=== PATIENT | female | born 1975 | race Caucasian/White ===

== ENCOUNTER 2020-04-23 07:30 | Inpatient (IN) | payer MEDICAID ==
[2020-04-17 11:49] LABS: HEMATOCRIT 36.8 % (36.0-47.0); MEAN CORPUSCULAR HEMOGLOBIN 30.7 pg (27.0-33.4); MEAN CORPUSCULAR HGB CONC 35.2 g/dL (32.0-36.0); MEAN CORPUSCULAR VOLUME 87 fl (80-97); PLATELET COUNT 196 10^3/uL (150-450); RED BLOOD COUNT 4.22 10^6/uL (3.72-5.28); RED CELL DISTRIBUTION WIDTH 14.4 % (11.5-14.0); WHITE BLOOD COUNT 7.1 10^3/uL (4.0-10.5)
[2020-04-17 12:14] LABS: APPEARANCE,URINE CLEAR; BILIRUBIN,URINE NEGATIVE (NEGATIVE); COLOR,URINE YELLOW; GLUCOSE, URINE NEGATIVE (NEGATIVE); KETONES,URINE NEGATIVE (NEGATIVE); LEUKOCYTE ESTERASE,URINE NEGATIVE (NEGATIVE); NITRITE,URINE NEGATIVE (NEGATIVE); PROTEIN,URINE NEGATIVE (NEGATIVE); URINE SPECIFIC GRAVITY 1.026; UROBILINOGEN,URINE NEGATIVE mg/dL (<2.0)
[2020-04-17 12:17] LABS: ALBUMIN 4.2 g/dL (3.5-5.0); ALKALINE PHOSPHATASE 83 U/L (38-126); ANION GAP 11 (5-19); ASPARTATE AMINO TRANSFERASE 22 U/L (14-36); BILIRUBIN,DIRECT 0.2 mg/dL (0.0-0.4); BILIRUBIN,TOTAL 0.5 mg/dL (0.2-1.3); BLOOD UREA NITROGEN 13 mg/dL (7-20); CALCIUM 9.1 mg/dL (8.4-10.2); CARBON DIOXIDE 20 mmol/L (22-30); CHLORIDE 104 mmol/L (98-107); GLUCOSE 90 mg/dL (75-110); POTASSIUM 4.2 mmol/L (3.6-5.0); TOTAL PROTEIN 7.3 g/dL (6.3-8.2)
[~2020-04-23 07:30] MED LIST: CEFAZOLIN 2 GM/D5W RTU 2 GM/50 ML RTUPB IV PRN; DEXAMETHASONE SOD PHOSPHATE INJ 4 MG/1 ML VIAL ONE; FENTANYL CITRATE INJ/PF 250 MCG/5 ML AMPULE ONE; HYDROMORPHONE HCL INJ/PF 2 MG/ML AMPULE ONE; KETOROLAC TROMETHAMINE 60 MG/2 ML SDV ONE; LACTATED RINGERS 1000 ML IV PRN; LIDOCAINE 0.5% INJ-PF (5 MG/ML) 50 ML SDV SUBCUT PRN; MIDAZOLAM 2 MG/2 ML INJ ONE; ONDANSETRON HCL INJ/PF 4 MG/2 ML SDV ONE; PROPOFOL INJ 200 MG/20 ML VIAL IV ONE; SUGAMMADEX SODIUM 200 MG/2 ML SDV IV ONE
[2020-04-23] MEDS ORDERED: HYDROMORPHONE HCL INJ/PF 2 MG/ML AMPULE ONE (10:03)
[2020-04-23] MEDS ORDERED: FENTANYL CITRATE INJ/PF 100 MCG/2 ML AMPUL ONE ×2 (10:04→12:30)
[2020-04-23] MEDS ORDERED: SUGAMMADEX SODIUM 200 MG/2 ML SDV IV ONE (10:04)
[2020-04-23] MEDS ORDERED: MIDAZOLAM 2 MG/2 ML INJ ONE (10:04)
[2020-04-23] MEDS ORDERED: EPHEDRINE SULFATE INJ 50 MG/1 ML AMPULE ONE (10:04)
[2020-04-23] MEDS ORDERED: PROPOFOL INJ 200 MG/20 ML VIAL IV ONE (10:04)
[2020-04-23] MEDS ORDERED: CEFAZOLIN 2 GM/D5W RTU 2 GM/50 ML RTUPB IV ONE (10:23)
[2020-04-23] MEDS ORDERED: MORPHINE SULFATE 10 MG/ML INJ IV PRN (11:09)
[2020-04-23] MEDS ORDERED: FENTANYL CITRATE INJ/PF 100 MCG/2 ML AMPUL IV PRN ×2 (11:09)
[2020-04-23] MEDS ORDERED: OXYCODONE-ACETAMINOPHEN 5-325 MG TABLET PO PRN ×3 (11:09→12:16)
[2020-04-23] MEDS ORDERED: PROMETHAZINE HCL INJ 25 MG/1 ML VIAL IV PRN ×3 (11:09→12:16)
[2020-04-23] MEDS ORDERED: MEPERIDINE HCL/PF INJ 25 MG/1 ML DISP.SYRIN IV PRN (11:09)
[2020-04-23] MEDS ORDERED: DIPHENHYDRAMINE HCL 50 MG/ML VIAL IV PRN (11:09)
[2020-04-23] MEDS ORDERED: HYDROMORPHONE HCL INJ/PF 2 MG/ML AMPULE IV PRN (12:16)
[2020-04-23] MEDS ORDERED: ACETAMINOPHEN 325 MG TABLET PO PRN (12:16)
[2020-04-23] MEDS ORDERED: SIMETHICONE 80 MG TAB.CHEW PO PRN (12:16)
[2020-04-23] MEDS ORDERED: RINGERS SOLUTION,LACTATED 1,000 ML IV PRN (12:16)
--- NOTE | 2020-04-23 12:27 | Operative Report ---
Operative Report DATE OF SURGERY: 04/23/20 PREOPERATIVE DIAGNOSIS: Heavy menstrual bleeding dysmenorrhea and fibroids POSTOPERATIVE DIAGNOSIS: Same OPERATION: Supracervical hysterectomy and bilateral salpingectomy SURGEON: TAPAN RODARTE ANESTHESIA: GA TISSUE REMOVED OR ALTERED: Uterus and fallopian tubes COMPLICATIONS: None ESTIMATED BLOOD LOSS: 125 cc INTRAOPERATIVE FINDINGS: Normal-appearing ovaries PROCEDURE: Patient presents with heavy menstrual bleeding dysmenorrhea fibroids. She req uests hysterectomy. We had initially to scheduled a laparoscopic hysterectomy with the intent to remove the uterus through the vagina however she requests a supracervical hysterectomy and asked that we go through her incision. She would like the ovaries left if normal. Patient was taken the OR and placed in supine position. General anesthesia was induced. She was placed in dorsolithotomy position using Reese stirrups. Her perineum vagina and abdomen were prepared and draped in a sterile fashion. A catheter was placed for drainage of the bladder. A low transverse incision was made along her old scar and carried down to level of the fascia. The fascia was incised with curved Gomez scissors. The fascia was off the rectus muscles using sharp and blunt dissection. The rectus muscles were in the midline peritoneum was entered without incident. An Alejandro retractor was placed and the bowel contents were packed back with 3 moist lap sponges. The uterus was grasped with a Keith thyroid clamp and elevated out of the pelvis. Using the LigaSure device the round ligaments bilaterally were clamped cauterized and cut. The anterior leaf of the broad ligament was incised creating a bladder flap. The posterior leaf of the broad ligament was incised isolating the utero-ovarian pedicles. The ovaries were normal and were left in place. The utero-ovarian pedicles were clamped cauterized and cut with the LigaSure device. The fallopian tubes also were removed bilaterally by cauterizing the mesosalpinx with the LigaSure device and and cutting the tubes free. These were passed off the field for specimen. Next staying directly next to the uterus the broad ligament was clamped cauterized and cut with the LigaSure device bilaterally. The uterine arteries were skeletonized and these were also clamped cauterized and cut with the LigaSure device bilaterally. During this time the bladder was taken off the anterior aspect the cervix using sharp and blunt dissection. The cardinal ligaments were then clamped with a straight Ajay clamp, cut and then ligated with 0 Vicryl suture bilaterally. The cervix was then cut with curved Gomez scissors. The uterus and upper cervix were passed off the field. The internal cervical canal was cauterized with the Bovie unit to ablate any remaining cervical endometrium. The cervix was then closed with interrupted sutures of 0 Vicryl. The pelvis was irrigated and suctioned free of fluid the surgical pedicles were inspected and found to be hemostatic. The 3 moist lap sponges were then removed from the pelvis and the bowel was allowed to settle to its natural configuration. The Alejandro retractor was removed. The anterior abdominal wall peritoneum was then closed with a 2-0 chromic stitch. The subfascial tissues were inspected for bleeding and the fascia was closed with a running 0 Vicryl in 2 segments. The wound was irrigated. David's layer was closed with a 2-0 plain gut stitch and skin closed with a running subcuticular 4-0 undyed Vicryl stitch. The wound was dressed. The patient was extubated in the OR and taken to the recovery room in stable condition.
[2020-04-23] MEDS ORDERED: MORPHINE SULFATE 10 MG/ML INJ ONE (12:30)
[2020-04-23] MEDS: FENTANYL CITRATE INJ/PF 100 MCG/2 ML AMPUL IV PRN ×2 (12:36→12:45)
[2020-04-23] MEDS ORDERED: ROCURONIUM BROMIDE INJ 50 MG/5 ML VIAL IV ONE (13:47)
[2020-04-23] MEDS ORDERED: ONDANSETRON HCL INJ/PF 4 MG/2 ML SDV ONE (13:47)
[2020-04-23] MEDS ORDERED: KETOROLAC TROMETHAMINE 60 MG/2 ML SDV ONE (13:47)
[2020-04-23] MEDS ORDERED: DIPHENHYDRAMINE HCL 50 MG/ML VIAL ONE (13:47)
[2020-04-23] MEDS ORDERED: GLYCOPYRROLATE 1 MG/5 ML VIAL ONE (13:47)
[2020-04-23] MEDS ORDERED: METOCLOPRAMIDE HCL INJ/PF 10 MG/2 ML SDV ONE (13:47)
[2020-04-23] MEDS ORDERED: DEXAMETHASONE SOD PHOSPHATE INJ 4 MG/1 ML VIAL ONE (13:47)
[2020-04-23] MEDS ORDERED: SUCCINYLCHOLINE CHLORIDE INJ 200 MG/10 ML VIAL ONE (13:47)
[2020-04-23] MEDS ORDERED: ALBUTEROL SULFATE HFA (90 MCG/PUFF) 8 GM MDI IH ONE (13:47)
[2020-04-23] MEDS ORDERED: KETOROLAC TROMETHAMINE INJ/PF 30 MG/1 ML SDV IV SCH (14:00)
[2020-04-23 16:42] LABS: HEMATOCRIT 35.4 % (36.0-47.0); HEMOGLOBIN 12.1 g/dL (12.0-15.5); MEAN CORPUSCULAR HEMOGLOBIN 29.8 pg (27.0-33.4); MEAN CORPUSCULAR HGB CONC 34.2 g/dL (32.0-36.0); MEAN CORPUSCULAR VOLUME 87 fl (80-97); RED BLOOD COUNT 4.05 10^6/uL (3.72-5.28); RED CELL DISTRIBUTION WIDTH 14.1 % (11.5-14.0); WHITE BLOOD COUNT 12.8 10^3/uL (4.0-10.5)
[2020-04-23 17:02] LABS: PLATELET COUNT 153 10^3/uL (150-450)
[2020-04-23 17:04] LABS: ABSOLUTE LYMPHOCYTES# (MANUAL) 0.9 10^3/uL (0.5-4.7); ABSOLUTE MONOCYTES # (MANUAL) 0.1 10^3/uL (0.1-1.4); BASOPHILS % (MANUAL) 0 % (0-2); EOSINOPHILS % (MANUAL) 0 % (0-6); LYMPHOCYTES % (MANUAL) 7 % (13-45); MONOCYTES % (MANUAL) 1 % (3-13); SEGMENTED NEUTROPHILS % (MAN) 92 % (42-78); TOTAL CELLS COUNTED 100
[2020-04-23 17:06] LABS: OVALOCYTES SLIGHT
[2020-04-23 17:07] LABS: ANISOCYTOSIS 1+; PLATELET CLUMPS PRESENT; PLATELET COMMENT ADEQUATE
[2020-04-23] MEDS: DOCUSATE SODIUM 100 MG CAPSULE PO SCH (17:57)
[2020-04-23] MEDS: OXYCODONE-ACETAMINOPHEN 5-325 MG TABLET PO PRN (22:25)
[2020-04-24] MEDS: IBUPROFEN 800 MG TABLET PO SCH ×3 (00:21→11:19)
[2020-04-24] MEDS: OXYCODONE-ACETAMINOPHEN 5-325 MG TABLET PO PRN ×3 (03:53→12:28)
[2020-04-24 07:56] LABS: HEMATOCRIT 31.9 % (36.0-47.0); HEMOGLOBIN 11.1 g/dL (12.0-15.5); MEAN CORPUSCULAR HEMOGLOBIN 30.1 pg (27.0-33.4); MEAN CORPUSCULAR HGB CONC 34.7 g/dL (32.0-36.0); MEAN CORPUSCULAR VOLUME 87 fl (80-97); PLATELET COUNT 174 10^3/uL (150-450); RED BLOOD COUNT 3.69 10^6/uL (3.72-5.28)
--- NOTE | 2020-04-24 09:24 | PDOC DISCHARGE SUMMARY ---
Impression - Admit/DC Date/PCP Admission Date/Primary Care Provider: 04/23/20 08:48 VIVIAN LAGUNAS Discharge Date: 04/24/20 - Discharge Diagnosis (1) Heavy menses Is this a current diagnosis for this admission?: Yes (2) Dysmenorrhea Is this a current diagnosis for this admission?: Yes - Assessment Summary: The pt requests a supracervical hysterectomy for her heavy menses and dysmenorrhea. This was done on the . Please see the operative report. She did well the night of surgery. She continues to do well today and would like to go home today. Precautions have been given. She will followup next week. - Additional Information Resuscitation Status: Full Code Discharge Diet: Regular Discharge Activity: Balance Activity w/Rest, Pelvic Rest, Slowly Increase Activity Referrals: TAPAN RODARTE MD [ACTIVE STAFF] - 05/06/20 11:00 am (CALL THE OFFICE OF ANY QUESTIONS OR CONCERNS.) JULES SESAY PA [Primary Care Provider] - Prescriptions: Oxycodone HCl/Acetaminophen [Percocet 5-325 mg Tablet] 2 tab PO Q6HP PRN #30 tablet PRN Reason: Ibuprofen [Motrin 800 mg Tablet] 800 mg PO Q8H #30 tablet Home Medications: Lisdexamfetamine Dimesylate [Vyvanse] 40 mg PO DAILY 04/17/20 Ibuprofen [Motrin 800 mg Tablet] 800 mg PO Q8H #30 tablet 04/24/20 Oxycodone HCl/Acetaminophen [Percocet 5-325 mg Tablet] 2 tab PO Q6HP PRN #30 tablet 04/24/20 Additional Information: Pelvic rest, no heavy lifting, no driving for two weeks. History of Present Illiness History of Present Illness: INDRA MCKEON is a 44 year old female Physical Exam - Physical Exam Vital Signs: Temp Pulse Resp BP Pulse Ox 98.2 F 62 16 109/67 100 04/24/20 07:10 04/24/20 07:10 04/24/20 07:10 04/24/20 07:10 04/24/20 07:10 Intake & Output 04/23/20 04/24/20 04/25/20 06:59 06:59 06:59 Intake Total 4050 140 Output Total 1950 Balance 2100 140 Weight 106.5 kg Results Laboratory Results: WBC 9.0 10^3/uL (4.0-10.5) 04/24/20 06:19 RBC 3.69 10^6/uL (3.72-5.28) L 04/24/20 06:19 Hgb 11.1 g/dL (12.0-15.5) L 04/24/20 06:19 Hct 31.9 % (36.0-47.0) L 04/24/20 06:19 MCV 87 fl (80-97) 04/24/20 06:19 MCH 30.1 pg (27.0-33.4) 04/24/20 06:19 MCHC 34.7 g/dL (32.0-36.0) 04/24/20 06:19 RDW 14.0 % (11.5-14.0) 04/24/20 06:19 Plt Count 174 10^3/uL (150-450) 04/24/20 06:19 Lymph % (Auto) Not Reportable 04/23/20 16:24 [place] % (Auto) Not Reportable 04/23/20 16:24 Eos % (Auto) Not Reportable 04/23/20 16:24 Baso % (Auto) Not Reportable 04/23/20 16:24 Absolute Neuts (auto) Not Reportable 04/23/20 16:24 Absolute Lymphs (auto) Not Reportable 04/23/20 16:24 Absolute Monos (auto) Not Reportable 04/23/20 16:24 Absolute Eos (auto) Not Reportable 04/23/20 16:24 Absolute Basos (auto) Not Reportable 04/23/20 16:24 Total Counted 100 04/23/20 16:24 Seg Neutrophils % Not Reportable 04/23/20 16:24 Seg Neuts % (Manual) 92 % (42-78) H 04/23/20 16:24 Lymphocytes % (Manual) 7 % (13-45) L 04/23/20 16:24 Monocytes % (Manual) 1 % (3-13) L 04/23/20 16:24 Eosinophils % (Manual) 0 % (0-6) 04/23/20 16:24 Basophils % (Manual) 0 % (0-2) 04/23/20 16:24 Abs Neuts (Manual) 11.8 10^3/uL (1.7-8.2) H 04/23/20 16:24 Abs Lymphs (Manual) 0.9 10^3/uL (0.5-4.7) 04/23/20 16:24 Abs Monocytes (Manual) 0.1 10^3/uL (0.1-1.4) 04/23/20 16:24 Absolute Eos (Manual) 0.0 10^3/uL (0.0-0.6) 04/23/20 16:24 Abs Basophils (Manual) 0.0 10^3/uL (0.0-0.2) 04/23/20 16:24 Clumped Platelets PRESENT 04/23/20 16:24 Platelet Comment ADEQUATE 04/23/20 16:24 Anisocytosis 1+ 04/23/20 16:24 Microcytosis SLIGHT 04/23/20 16:24 Ovalocytes SLIGHT 04/23/20 16:24 Sodium 134.8 mmol/L (137-145) L 04/17/20 10:57 Potassium 4.2 mmol/L (3.6-5.0) 04/17/20 10:57 Chloride 104 mmol/L (98-107) 04/17/20 10:57 Carbon Dioxide 20 mmol/L (22-30) L 04/17/20 10:57 Anion Gap 11 (5-19) 04/17/20 10:57 BUN 13 mg/dL (7-20) 04/17/20 10:57 Creatinine 0.59 mg/dL (0.52-1.25) 04/17/20 10:57 Est GFR ( Amer) > 60 (>60) 04/17/20 10:57 Est GFR (MDRD) Non-Af > 60 (>60) 04/17/20 10:57 Glucose 90 mg/dL (75-110) 04/17/20 10:57 Calcium 9.1 mg/dL (8.4-10.2) 04/17/20 10:57 Total Bilirubin 0.5 mg/dL (0.2-1.3) 04/17/20 10:57 Direct Bilirubin 0.2 mg/dL (0.0-0.4) 04/17/20 10:57 Neonat Total Bilirubin Not Reportable 04/17/20 10:57 Neonat Direct Bilirubin Not Reportable 04/17/20 10:57 Neonat Indirect Bili Not Reportable 04/17/20 10:57 AST 22 U/L (14-36) 04/17/20 10:57 ALT 19 U/L (<35) 04/17/20 10:57 Alkaline Phosphatase 83 U/L (38-126) 04/17/20 10:57 Total Protein 7.3 g/dL (6.3-8.2) 04/17/20 10:57 Albumin 4.2 g/dL (3.5-5.0) 04/17/20 10:57 Urine Color YELLOW 04/17/20 09:55 Urine Appearance CLEAR 04/17/20 09:55 Urine pH 5.0 (5.0-9.0) 04/17/20 09:55 Ur Specific [place] 1.026 04/17/20 09:55 Urine Protein NEGATIVE mg/dL (NEGATIVE) 04/17/20 09:55 Urine Glucose (UA) NEGATIVE mg/dL (NEGATIVE) 04/17/20 09:55 Urine Ketones NEGATIVE mg/dL (NEGATIVE) 04/17/20 09:55 Urine Blood NEGATIVE (NEGATIVE) 04/17/20 09:55 Urine Nitrite NEGATIVE (NEGATIVE) 04/17/20 09:55 Urine Bilirubin NEGATIVE (NEGATIVE) 04/17/20 09:55 Urine Urobilinogen NEGATIVE mg/dL (<2.0) 04/17/20 09:55 Ur Leukocyte Esterase NEGATIVE (NEGATIVE) 04/17/20 09:55 Urine WBC (Auto) 1 /HPF 04/17/20 09:55 Urine RBC (Auto) 2 /HPF 04/17/20 09:55 Urine Bacteria (Auto) TRACE /HPF 04/17/20 09:55 Squamous Epi Cells Auto 3 /HPF 04/17/20 09:55 Urine Mucus (Auto) RARE /LPF 04/17/20 09:55 Urine Ascorbic Acid NEGATIVE (NEGATIVE) 04/17/20 09:55 Urine HCG, Qual NEGATIVE (NEGATIVE) 04/23/20 09:15 COVID-19 Source See comment 04/17/20 10:50 COVID-19 (PRICILA) Not Detected (Not Detect) 04/17/20 10:50 Blood Type O POSITIVE 04/17/20 10:57 Antibody Screen NEGATIVE 04/17/20 10:57 Stroke Is this a Stroke Patient?: No Acute Heart Failure Is this a Heart Failure Patient?: No
[2020-04-24] MEDS: DOCUSATE SODIUM 100 MG CAPSULE PO SCH (09:50)
[2020-04-24 12:07] VITALS: BP 109/67
== END 2020-04-24 13:35 | disposition home or self-care (01) | DRG 743 ==
LOC: INOR 08:48 → 2N 13:38
PROVIDERS: ADMIT Obstetrics & Gynecology; ATTEND Obstetrics & Gynecology
PROC: 0UT70ZZ Resection of Bilateral Fallopian Tubes, Open Approach (ICD-10-PCS; 2020-04-23)
PROC: 0UT90ZL Resection of Uterus, Supracervical, Open Approach (ICD-10-PCS; principal; 2020-04-23 10:45)
DX: N93.9 Abnormal uterine and vaginal bleeding, unspecified (principal); N94.6 Dysmenorrhea, unspecified; F17.210 Nicotine dependence, cigarettes, uncomplicated; Z20.822 Contact with and (suspected) exposure to COVID-19; Z90.49 Acquired absence of other specified parts of digestive tract
CPT/HCPCS: 36415; 80053; 81001; 81025; 840; 85025; 85027; 86850; 86900; 86901; 87635; 88307; 94799; C1758; C9803; J0330; J0690; J1100; J1170; J1200; J1885; J2250; J2270; J2405; J2704; J2765; J3010; J3490; J7120